=== PATIENT | female | born 2000 | race Hispanic/Latino ===

== ENCOUNTER 2021-01-14 12:00 | Outpatient (CLI) | payer MEDICAID ==
--- NOTE | 2021-01-14 10:40 | Fluoroscopy Report ---
Static cystogram Indication: HYDRONEPHROSIS WITH RENAL AND URETERAL CALCULOUS. Concern for reflux or obstruction. Ri ght kidney is reportedly surgically absent. Technique: Single contrast water-soluble technique utilized to evaluate the urinary bladder and left ureter. Findings: To begin the exam, the patient was catheterized and water-soluble contrast was connected t o the catheter. Contrast was then instilled into the urinary bladder via passive gravity flow. Urinary bladder was filled with 200 mL of contrast. The bladder appears somewhat lobulated but there was no obvious mass or filling defect. There was no reflux of contrast into either distal ureter. Fro ntal and oblique images were obtained to document these findings. The bladder was then drained and a post voiding radiograph was obtained which also showed no abnormality. Impression: 1. No evidence of ureteral reflux. 2. Slightly lobulated appearance of the urinary bladder with no mass or filling defect identified. Fluoroscopic time: minutes Number of fluoroscopic images: Signer Name: Marlo Valdez MD Signed: 01/14/2021 10:36 AM Workstation Name: [id number]
[~2021-01-14 12:00] MED LIST: FUROSEMIDE 20 MG/2 ML INJ IV ONE; FUROSEMIDE 20 MG/2 ML INJ ONE
--- NOTE | 2021-01-15 08:23 | Nuclear Medicine Report ---
Renal Scan HISTORY: HYDRONEW/ RENAL URETERAL CALCULUS. Patient has a history of previous right-sided nephrect kirstin, concern for reflux or hydronephrosis TECHNIQUE: Patient was given 5 mCi of technetium MAG3 and 20 mg of Lasix at 23 minutes. COMPARISON: None FINDINGS: Dynamic flow images show gradual radiotracer uptake in the parenchyma and eventually excret ion into the collecting system/ureter; however, there is retention of radiotracer by the end of this portion of the exam. Left renal function is 97% with normalized ERPF MAG3 of 46 mL/m. The time/activity curve shows gradua l radiotracer uptake and then excretion, overall somewhat blunted/rounded in appearance instead of th e typical sharp uptake/excretion. The time from Lasix administration to half Lasix was greater than 2 0 minutes. IMPRESSION: Abnormal exam as outlined above with radiotracer retention and delayed excretion which m ay reflect an underlying obstructive component. Signer Name: Marlo Valdez MD Signed: 01/15/2021 8:19 AM Workstation Name: [id number]
== END 2021-01-14 23:59 | disposition home or self-care (01) ==
LOC: FLUORO 12:00
PROVIDERS: ATTEND Urology
DX: N13.2 Hydronephrosis with renal and ureteral calculous obstruction (principal); Z90.5 Acquired absence of kidney; Z88.5 Allergy status to narcotic agent; Z88.8 Allergy status to other drugs, medicaments and biological substances
CPT/HCPCS: 51600; 74430; 78708; A9562; J1940; Q9958